=== PATIENT | male | born 1980 | race African-American/Black ===

== ENCOUNTER 2017-02-11 20:55 | Emergency (ER) | payer OTHER ==
[~2017-02-11] VITALS: Ht 185.4 cm; Wt 89.4 kg
[2017-02-11] MEDS ORDERED: AZITHROMYCIN 250 MG TABLET. PO ONE (21:30)
[2017-02-11 21:47] VITALS: BP 148/89
[2017-02-11] MEDS ORDERED: supplements (22:45)
--- NOTE | 2017-02-15 07:14 | ED.ADGEN ---
Past History Past Medical History: No Pertinent History Past Surgical History: No Surgical History Alcohol Use: Rarely Drug Use: None Adult General Chief Complaint Chief Complaint Left wrist laceration HPI HPI Patient is a 37-year-old [place] male who presents with accidental injury to right wrist. Drink or just prior to ED arrival. Patient was using a knife to cut open a package when it slipped, lacerating radial aspect of his right proximal wrist. Patient reports giving nonpulsatile bleeding at home prior to ED arrival. Bleeding was easily controlled with pressure dressing. Patient denies dizziness lightheadedness, bleeding disorders or use of anticoagulation medications. Denies loss of use of left hand, numbness or tingling. Tetanus status is known and is up-to-date. Patient is accompanied at bedside by spouse. No other acute symptoms or complaints. Review of Systems Review of Systems ROS as per HPI. Current Medications Current Medications Current Medications Medications (Trade) Dose Ordered Sig/Elian Start Time Stop Time Status Last Admin Dose Admin Azithromycin (Zithromax) 500 mg 1X ONCE 02/11/17 21:30 02/11/17 21:30 DC Allergies Allergies Allergies Coded Allergies Type Severity Reaction Last Updated Verified No Known Drug Allergies 02/11/17 No Physical Exam Physical Exam Constitutional: Well developed, well nourished, no acute distress, non-toxic appearance. [] HENT: Normocephalic, atraumatic, bilateral external ears normal, oropharynx moist, no oral exudates, nose normal. [] Eyes: PERRLA, EOMI, conjunctiva normal, no discharge. [] Neck: Normal range of motion, no tenderness, supple, no stridor. [] Cardiovascular:Heart rate regular rhythm, no murmur [] Lungs & Thorax: Bilateral breath sounds clear to auscultation [] Abdomen: Bowel sounds normal, soft, no tenderness, no masses, no pulsatile masses. [] Skin: Warm, dry, no erythema, no rash. [] Back: No tenderness, no CVA tenderness. [] Extremities: Left proximal wrist, 2 cm full thickness laceration wound is clean , bleeding is controlled, no visible vessel or tendon injury. Radial pulse present with good cap refill. [] Neurologic: Alert and oriented X 3, left wrist, no motor weakness or loss of sensation. [] Psychologic: Affect normal, judgement normal, mood normal. Current Patient Data Vital Signs Vital Signs Date Time Temp Pulse Resp B/P (MAP) Pulse Ox O2 Delivery O2 Flow Rate FiO2 02/11/17 21:47 68 20 148/89 (108) 99 Room Air 02/11/17 21:42 99.8 EKG EKG [] Radiology/Procedures Radiology/Procedures [Laceration Procedure note Wound was carefully inspected and cleaned with peroxide and closed with #5 gonzález with good approximation. A topical antibiotic was applied and then was bandaged. Typical wound instructions were given. During the procedure, the patient had a vasovagal episode which was accompanied with bradycardia, dizziness, and diaphoresis. The patient was observed upwards of 45 minutes until symptoms have fully resolved. Course & Med Decision Making Course & Med Decision Making Pertinent Labs and Imaging studies reviewed. (See chart for details) [Left wrist laceration cleaned and repaired. Typical wound care instructions given. Return precautions reviewed. ] Final Impression Final Impression [1. Left wrist laceration] Problems: Dragon Disclaimer Dragon Disclaimer This electronic medical record was generated, in whole or in part, using a voice recognition dictation system. CATE SYED DO Feb 15, 2017 07:14
== END 2017-02-11 21:49 | disposition home or self-care (01) ==
LOC: ER 20:55
DX: S61.512A Laceration without foreign body of left wrist, initial encounter (principal); W26.0XXA Contact with knife, initial encounter; Y93.89 Activity, other specified; Y99.8 Other external cause status; Y92.89 Other specified places as the place of occurrence of the external cause
CPT/HCPCS: 12001; 99283

== ENCOUNTER 2017-02-18 17:04 | Emergency (ER) | payer OTHER ==
[~2017-02-18] VITALS: Ht 185.4 cm; Wt 89.4 kg
[~2017-02-18 17:04] MED LIST: supplements
[2017-02-18 17:27] VITALS: BP 113/64
== END 2017-02-18 18:00 | disposition home or self-care (01) ==
LOC: ER 17:04
DX: S61.512D Laceration without foreign body of left wrist, subsequent encounter (principal); X58.XXXD Exposure to other specified factors, subsequent encounter; Y99.8 Other external cause status; Y92.89 Other specified places as the place of occurrence of the external cause
CPT/HCPCS: 99283